=== PATIENT | female | born 1995 | race Caucasian/White ===

== ENCOUNTER 2017-03-22 11:57 | Emergency (ER) | payer SELFPAY ==
[~2017-03-22] VITALS: Ht 160 cm; Wt 122.7 kg
[2017-03-22 12:06] VITALS: Ht 160 cm; Wt 122.7 kg
[2017-03-22] MEDS ORDERED: KETOROLAC 30 MG INJ IM STA (12:53)
[2017-03-22] MEDS ORDERED: HYDROCODONE/APAP (5/325) TAB PO ONE (13:00)
--- NOTE | 2017-03-22 13:29 | ERD ---
ER Documentation Chief Complaint Date/Time DATE: 03/22/17 TIME: 13:21 Chief Complaint right knee pain/swelling s/p slip & fall onto floor at work no LOC HPI This is a 21-year-old female presenting to the emergency department for right knee pain and swelling that started after fall today. Patient states she was at work when she slipped on parchment paper and fell hurting her knee and hitting her head. Patient states at time of injury she did have severe left temporal headache and had brief 2 second loss of consciousness. No nausea or vomiting. No confusion. Patient states headache has resolved however now she has right knee pain. Patient rating pain to right knee 6-7/10. Patient states she has some numbness to right leg however no loss of sensation. Patient cannot bear weight to right knee. Patient had previous injury to right knee several years ago. ROS All systems reviewed and are negative except as per history of present illness. Medications Home Meds Active Scripts Hydrocodone/Acetaminophen ([place] 5-325 Tablet) 1 Each Tablet, 1 TAB PO Q6H Y for PAIN, #7 TAB Prov:LAURA CARR NP 03/22/17 Ibuprofen* (Motrin*) 800 Mg Tab, 800 MG PO Q6, #15 TAB Prov:LAURA CARR NP 03/22/17 Allergies Allergies: Coded Allergies: No Known Allergy (Unverified , 03/22/17) PMhx/Soc Hx Alcohol Use: No Hx Substance Use: No Hx Tobacco Use: No Smoking Status: Never smoker Physical Exam Vitals Vital Signs Date Time Temp Pulse Resp B/P Pulse Ox O2 Delivery O2 Flow Rate FiO2 03/22/17 12:06 98.1 100 18 164/89 97 Physical Exam Const: Alert, oriented to person, place and time Head: Atraumatic Eyes: Normal Conjunctiva ENT: Normal External Ears, Nose and Mouth. Neck: Full range of motion..~ No meningismus. Resp: Clear to auscultation bilaterally. No wheezing, rhonchi or crackles. Cardio: Regular rate and rhythm, no murmurs Abd: Soft, non tender, non distended. Normal bowel sounds Skin: No petechiae or rashes Back: No midline or flank tenderness Ext: mild edema to anterior right knee. neg froilan's sign Neur: Awake and alert Psych: Normal Mood and Affect Results 24 hrs Current Medications Medications (Trade) Dose Ordered Sig/Nick Route PRN Reason Start Time Stop Time Status Last Admin Dose Admin Ketorolac Tromethamine (Toradol) 30 mg ONCE STAT IM 03/22/17 12:53 03/22/17 12:55 DC 03/22/17 13:47 Acetaminophen/ Hydrocodone Bitart ([place] (5/325)) 1 tab ONCE ONCE PO 03/22/17 13:00 03/22/17 13:01 DC 03/22/17 13:46 Procedures/MDM ED COURSE: The patient was stable throughout ED course. I kept the patient and/or family informed of laboratory and diagnostic imaging results throughout the ED course. Imaging X-ray right knee Patient: ANITRA HURTADO : 1995 Age: 21 Sex: F MR #: [id number] DOS: 03/22/17 1253 Ordering MD: LAURA CARR NP Location: [facility] Room/Bed: PROCEDURE: XR Knee. CLINICAL INDICATION: Pain TECHNIQUE: AP, lateral and oblique view of the right knee were obtained. The images reviewed on a PACS workstation. COMPARISON: None. FINDINGS: Three views of the right knee demonstrate no displaced fracture. No gross malalignment is seen. There is no significant degenerate change. No patellofemoral disease is identified. No knee joint effusion is seen.. The bones normally mineralized. The soft tissues are unremarkable. IMPRESSION: No acute fracture dislocation CT head Patient: ANITRA HURTADO : 1995 Age: 21 Sex: F MR #: [id number] DOS: 03/22/17 1253 Ordering MD: LAURA CARR NP Location: [facility] Room/Bed: PROCEDURE: Noncontrast CT Head. CLINICAL INDICATION: Status post fall. Loss of consciousness. TECHNIQUE: Noncontrast CT of the head was obtained. The administered radiation dose was CTDI vol = 43.05 mGy, DLP = 720.23 mGy-cm. One or more of the following dose reduction techniques were used: Automated exposure control, Adjustment of the mA and/or kV according to patient size, or Use of iterative reconstruction technique. COMPARISON: There are no similar studies submitted for comparison. FINDINGS: The ventricles and sulci are within normal limits. There is a partially empty sella turcica. There is no loss of portillo-white differentiation to suggest acute territorial infarction. There is no acute intracranial hemorrhage or extra-axial fluid collection. There is no mass effect. No midline shift is identified. The orbits are within normal limits. The paranasal sinuses are well aerated. No destructive osseous lesion is identified. 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 IMPRESSION: 1. No acute intracranial hemorrhage or extra-axial fluid collection. 2. Partially empty sella turcica. Further findings as detailed above. MDM: This is a 21-year-old female presenting to emergency department for right knee pain and swelling after fall today. Patient also states she hit her head during fall. Patient had brief loss of consciousness for 2 seconds. No nausea or vomiting. Patient states she did have a severe headache at time of head trauma however now denies headache. Patient is alert and oriented to person place and time. An x-ray of the right knee and CT head were ordered. Patient was given Toradol IM and [place] p.o. x-ray right knee reviewed by radiologist as no acute fracture or dislocation. CT head reviewed by radiologist as no acute intracranial hemorrhage or extra axial fluid collection. Partially empty sella turcica. Patient remains alert and oriented. No neuro deficits. Patient states pain has reduced. No significant lower leg swelling. No erythema or warmth to calf. Patient given knee immobilizer to right lower extremity and patient remains neurovascularly intact pre-and post splint application. All results and findings discussed at length with patient. Low suspicion for acute dislocation, fracture, DVT, intracranial hemorrhage or subdural hematoma. Diagnosis is knee injury. Patient is appropriate for outpatient management will be given prescription for ibuprofen and [place]. Instructed patient to follow-up with primary care provider in the next 24-40 hours for reassessment and additional management. Resources provided. CD of x-ray images provided. Return to ED for any high fever, chest pain, difficulty breathing, shortness breath, wheezing, vomiting, diarrhea, abdominal pain or any new or worsening symptoms. Patient verbalizes understanding. All questions answered at discharge. Departure Diagnosis: Primary Impression: Knee injury Encounter type: initial encounter Laterality: right Qualified Code: S89.91XA - Knee injury, right, initial encounter Condition: Stable LAURA CARR NP Mar 22, 2017 13:29
--- NOTE | 2017-03-22 13:56 | RADRPT ---
PROCEDURE: Noncontrast CT Head. CLINICAL INDICATION: Status post fall. Loss of consciousness. TECHNIQUE: Noncontrast CT of the head was obtained. The administered radiation dose was CTDI vol = 43.05 mGy, DLP = 720.23 mGy-cm. One or more of the following dose reduction techniques were used: Au tomated exposure control, Adjustment of the mA and/or kV according to patient size, or Use of iterat alan reconstruction technique. COMPARISON: There are no similar studies submitted for comparison. FINDINGS: The ventricles and sulci are within normal limits. There is a partially empty sella turcica. There is no loss of portillo-white differentiation to suggest acute territorial infarction. There is no acute intracranial hemorrhage or extra-axial fluid collection. There is no mass effect. No midline shift is identified. The orbits are within normal limits. The paranasal sinuses are well aerated. No destructive osseous lesion is identified. 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 IMPRESSION: 1. No acute intracranial hemorrhage or extra-axial fluid collection. 2. Partially empty sella turcica. Further findings as detailed above. RPTAT: AA .Deion Perez MD, MD Date Time Electronically viewed and signed by .Deion Perez MD, on 03/22/2017 13:56 .F/
--- NOTE | 2017-03-22 14:09 | RADRPT ---
PROCEDURE: XR Knee. CLINICAL INDICATION: Pain TECHNIQUE: AP, lateral and oblique view of the right knee were obtained. The images reviewed on a PACS workstation. COMPARISON: None. FINDINGS: Three views of the right knee demonstrate no displaced fracture. No gross malalignment is seen. Th ere is no significant degenerate change. No patellofemoral disease is identified. No knee joint effu dedrick is seen.. The bones normally mineralized. The soft tissues are unremarkable. IMPRESSION: No acute fracture dislocation RPTAT: HH .Fuad Lemon MD, MD Date Time Electronically viewed and signed by .Fuad Lemon MD, on 03/22/2017 14:09 .W/
[2017-03-22] MEDS ORDERED: IBUP800T25 PO (14:27)
[2017-03-22] MEDS ORDERED: HYDR-906 PO (14:27)
== END 2017-03-22 14:44 | disposition home or self-care (01) ==
LOC: FTE 11:57
DX: S89.91XA Unspecified injury of right lower leg, initial encounter (principal); R40.4 Transient alteration of awareness; W01.198A Fall on same level from slipping, tripping and stumbling with subsequent striking against other object, initial encounter; Y92.89 Other specified places as the place of occurrence of the external cause
CPT/HCPCS: 29505; 70450; 73562; 96372; 99285; J1885

== ENCOUNTER 2018-03-09 18:50 | Emergency (ER) | END 2018-03-10 07:40 | disposition home or self-care (01) ==

== ENCOUNTER 2018-03-24 18:08 | Emergency (ER) | END 2018-03-24 22:55 | disposition home or self-care (01) ==